=== PATIENT | female | born 1950 | race Caucasian/White ===

== ENCOUNTER 2024-07-17 16:05 | Outpatient (REF) | payer MEDICARE, SELFPAY ==
--- OUTSIDE RECORDS SUMMARY | 2024-07-17 17:21 | XMS_ITS | Continuity of Care Document ---
Author Organization [facility] Address [address] [place] [address]- Care Team Providers Care Dog Control Officer Name Role Phone Vern CARTON MARKER MACHINE, Lashanda Minaya Primary Care Physician [id number] Date(s): 06/11/24 - 07/11/[address] [address] Encounter Type: Triage Allergies, Adverse Reactions, Alerts Substance Criticality Severity Reaction Reaction Severity Status azithromycin rash Active Vioxx unknown Active Immunizations Given and Recorded Vaccine Date Status Refusal Reason pneumococcal 13-valent vaccine 10/04/18 Given Medications acetaZOLAMIDE 500 mg oral capsule, extended release 500 mg, 1, capsule, By Mouth, Daily at bedtime, # 30 capsule, Refills 3, Tot. Refills 3, Maintenance, 02/04/24 1:30:00 PM EDT, Route to Pharmacy Electronically, [facility] #[id number], Partial fill upon patient request if the prescription is for a schedule II opioid drug., 155, cm, 01/23/24 16:2 3:00 EDT, Height, 79.3, kg, 12/11/23 16:46:00 EDT, Dry Weight Start Date: 02/04/24 Status: Ordered Quantity: 30.0 Unit: capsule Repeat number: 4 ARIPiprazole 2 mg oral tablet 2 mg, 1, tablet, By Mouth, Daily, # 30 tablet, Refills 0, Maintenance, 03/28/24 10:16:00 AM EDT, Partial fill upon patient request if the prescription is for a schedule II opioid drug. Start Date: 03/28/24 Status: Ordered Quantity: 30.0 Unit: tablet Repeat number: 1 buPROPion 300 mg/24 hours (XL) oral tablet, extended release 1 tablet = 300 mg, By Mouth, Daily, # 30 tablet, 0 Refills, Maintenance, 07/26/23 3:32:00 PM EST, ERTablet, Partial fill upon patient request if the prescription is for a schedule II opioid drug. Start Date: 07/26/23 Status: Ordered Quantity: 30.0 Unit: tablet Repeat number: 1 Calcium Carbonate-Magnesium Carbonate By Mouth, Daily, 0 Refills, Maintenance, 11/16/21 3:34:00 PM EDT, Partial fill upon patient request if the prescription is for a schedule II opioid drug. Start Date: 11/16/21 Status: Ordered Repeat number: 1 D3 1000 oral tablet 1 tablet = 1,000 International_Units, By Mouth, Daily, 0 Refills, Maintenance, 10/02/17 9:19:25 AM EDT Start Date: 10/02/17 Status: Ordered Repeat number: 1 duloxetine 60 mg oral enteric coated capsule 1 capsule = 60 mg, By Mouth, Daily, 0 Refills, Maintenance, 10/02/17 9:18:04 AM EDT Start Date: 10/02/17 Status: Ordered Repeat number: 1 estradiol 0.1 mg/g vaginal cream 0 Refills, Maintenance, 11/16/21 2:30:00 PM EDT, Partial fill upon patient request if the prescription is for a schedule II opioid drug. Start Date: 11/16/21 Status: Ordered Repeat number: 1 hydrochlorothiazide-valsartan 12.5 mg-320 mg oral tablet TAKE 1 TABLET BY MOUTH IN THE MORNING Start Date: 10/19/22 Status: Ordered Repeat number: 1 levothyroxine 0.088 mg oral tablet 1 tablet = 88 mcg, By Mouth, Daily, 0 Refills, Maintenance, 11/16/21 2:30:00 PM EDT, Partial fill upon patient request if the prescription is for a schedule II opioid drug. Start Date: 11/16/21 Status: Ordered Repeat number: 1 Magnesium Chloride 0 Refills, Maintenance, 01/31/18 11:12:51 AM EDT Start Date: 01/31/18 Status: Ordered Repeat number: 1 MetFORMIN (Eqv-Glucophage XR) 500 mg oral tablet, extended release 0 Refills, Maintenance, 03/28/24 10:16:00 AM EDT, Partial fill upon patient request if the prescription is for a schedule II opioid drug. Start Date: 03/28/24 Status: Ordered Repeat number: 1 Multivitamin 0 Refills, Maintenance, 07/26/23 3:33:00 PM EST, Partial fill upon patient request if the prescription is for a schedule II opioid drug. Start Date: 07/26/23 Status: Ordered Repeat number: 1 [place]-3 oral capsule 0 Refills, Maintenance, 01/31/18 11:12:04 AM EDT Start Date: 01/31/18 Status: Ordered Repeat number: 1 pantoprazole 20 mg oral delayed release tablet 1 tablet = 20 mg, By Mouth, Daily, # 30 tablet, 0 Refills, Maintenance, 03/28/24 10:16:00 AM EDT, CRTablet Start Date: 03/28/24 Status: Ordered Quantity: 30.0 Unit: tablet Repeat number: 1 simvastatin 20 mg oral tablet 20 mg, 1, tablet, By Mouth, Daily at bedtime, # 30 tablet, Refills 0, Maintenance, 03/28/24 10:16:00AM EDT, Partial fill upon patient request if the prescription is for a schedule II opioid drug. Start Date: 03/28/24 Status: Ordered Quantity: 30.0 Unit: tablet Repeat number: 1 Tylenol Caplet Extra Strength = 1,000 mg, By Mouth, Every 6 hours, 0 Refills, Maintenance, 07/26/23 3:33:00 PM EST, Partial fill upon patient request if the prescription is for a schedule II opioid drug. Start Date: 07/26/23 Status: Ordered Repeat number: 1 Vitamin C 500 mg oral tablet 1 tablet = 500 mg, By Mouth, Daily, 0 Refills, Maintenance, 10/02/17 9:19:15 AM EDT Start Date: 10/02/17 Status: Ordered Repeat number: 1 Problem List Condition Confirmation Course Effective Dates Status Health St atus Informant Bruxism Confirmed Active Depression Confirmed Active Hypertension Confirmed Active Hypothyroid Confirmed Active Obstructive sleep apnea Confirmed Active Social History Social History Type Response Smoking Status Never (less than 100 in lifetime) entered on: 10/19/22 Sex Sex Representation Female (finding) Patient Care team information Care Team Personnel Name: Vern HARRELL, Lashanda Minaya Position: Reference Physician Member Role: PCP Address: [address] [place] [address]- Telecom: Name: Mirella Peters Position: S Outreach Member Role: Lifetime Consulting Physician Care Team Related Persons Name: YO BARBA Name: PRECIOUS MARTINEZ Insurance Providers Guarantor name: VALERIO MARTINEZ Health Plan Information #: 1 Payer: MEDICARE PART B OUTPT Member Number: NA Policy Number: NA Group Number: NA Health Plan Information #: 2 Payer: MEDEX Member Number: NA Policy Number: NA Group Number: NA
--- OUTSIDE RECORDS SUMMARY | 2024-07-17 17:21 | XMS_ITS | Continuity of Care Document ---
Author Organization [facility] Address [address] [place] [address]- Care Team Providers Care Nuclear Equipment Design Engineer Name Role Phone Vern CLOTH SHEARING SUPERVISOR, Lashanda Minaya Primary Care Physician [id number] Date(s): 06/05/24 - 07/05/[address] [address] Encounter Type: Triage Allergies, Adverse Reactions, Alerts [...] 1:30:00 PM EDT, Route to Pharmacy Electronically, [facility] #[id number], Partial fill upon patient request if the [...] Date: 07/26/23 Status: Ordered Repeat number: 1 [place]-3 oral capsule 0 Refills, Maintenance, 01/31/18 11:12:04 [...] Confirmed Active Obstructive sleep apnea Confirmed Active Vital Signs Most recent to oldest [Reference Range]: 1 Height 155 cm (06/05/24 6:29 PM) Weight 64 kg (06/05/24 6:29 PM) Social History Social History Type Response Smoking Status Never (less than 100 in lifetime) entered on: 4/6/23 Sex Sex Representation Female (finding) Patient Care team information Care Team Personnel Name: Vern HARRELL, Lashanda Minaya Position: Reference Physician Member Role: PCP Address: [address] [place] [address] Telecom: Name: Mirella Peters Position: S Outreach [...]
--- OUTSIDE RECORDS SUMMARY | 2024-07-17 17:21 | XMS_ITS | Continuity of Care Document ---
Author Organization [facility] Address [address] [place] [address]- Care Team Providers Care Surveyor Mine Name Role Phone Vern HARRELL, Lashanda Minaya Primary Care Physician Encounter [facility] Date(s): 05/26/24 - 07/10/[address] [address]- Attending Physician: Lashanda Porras NP Admitting Physician: Lashanda Porras NP Referring Physician: Lashanda Porras NP Encounter Type: Pre-Outpt Allergies, Adverse Reactions, Alerts Substance Criticality Severity [...] 1:30:00 PM EDT, Route to Pharmacy Electronically, [facility] #[id number], Partial fill upon patient request if the [...] Date: 07/26/23 Status: Ordered Repeat number: 1 [place]-3 oral capsule 0 Refills, Maintenance, 01/31/18 11:12:04 [...] Position: Reference Physician Member Role: PCP Address: [address] [place] [address]- Telecom: Name: Mirella Peters Position: [facility] Outreach Member Role: Lifetime Consulting Physician Care Team Related Persons Name: YO BARBA Name: PRECIOUS MARTINEZ Insurance Providers Guarantor name: VALERIO MARTINEZ Health Plan Information #: 1 Payer: MEDICARE PART B OUTPT Member Number: [id number] Policy Number: NA Group Number: NA Health Plan Information #: 2 Payer: MEDEX Member Number: [id number] Policy Number: NA Group Number: [id number]
--- OUTSIDE RECORDS SUMMARY | 2024-07-17 17:21 | XMS_ITS | Data Portability ---
Author Organization [place] [facility] [employer] Address [address] [place] [address] Assessment Encounter Date Assessment Date Assessment LastModified by Organization Details LastModified Time 02/11/2024 02/11/2024 Pt presents to office for start of ozempic injections. Educated on proper storage of medication and technique for giving subcutaneous injections, proper disposal of needles, and to monitor for s/s of nausea. SQ injection given in LLQ, no s/s of complications, pt tolerated well. Screening for strictly contraindicated conditions family or personal history of medullary thyroid cancer Screening for personal history of pancreatitis no Follow up in 1 month. Dosage given for the next 4 weeks 0.25mg Semaglutide for weight loss appropriate due to BMI and comorbid conditions. Follow up in 4 weeks [email or web address] Not available 02/13/2024 11:02:53 03/10/2024 03/10/2024 Per nursing protocol: Semaglutide for weight loss appropriate due to BMI and comorbid conditions. Patient is experiencing minimal and manageable side effects related to the medication per patient. Patient strongly encouraged to follow up with her providers to discuss current side effects. Patient also informed that provider at our office will be made aware of current symptoms. Patient to contact office if questions or concerns arise in the meantime. Patient agreed to plan and verbalized understanding. Total of 4 doses of Semaglutide 0.5 mg was supplied to patient via pre-filled syringes. Follow up in 4 weeks to assess for increase of dosage and management of semaglutide [email or web address] Not available 03/11/2024 09:40:32 04/07/2024 04/07/2024 Per Nursing Protocol SQ injection given in RLQ, no s/s of complications, pt tolerated well Side Effects: Fatigue Weight Loss Thus Far: 14 lbs Next Dose: Patient tolerating well will increase dose. Follow up in 1 month. Dosage given for the next 4 weeks 1mg Semaglutide for weight loss appropriate due to BMI and comorbid conditions. Follow up in 4 weeks [email or web address] Not available 04/07/2024 09:39:00 05/05/2024 05/05/2024 Side Effects: Diarrhea daily since increase in dose to 1mg weekly 4 weeks ago Weight Loss Thus Far: 18.8 pounds Next Dose: Continue on 1mg weekly Patient tolerating not well will maintain dose of Semaglutide 1mg weekly Dose given for the next 4 weeks 1mg Semaglutide for weight loss appropriate due to BMI and comorbid conditions. Follow up in 4 weeks [email or web address] Not available 05/05/2024 09:37:11 07/02/2024 07/02/2024 Comorbid Conditions: Obesity Side Effects: Fatigue and nausea Weight Loss Thus Far: Restart Next Dose: 0.25 Patient tolerating well will maintain dose. Follow up in 1 month. Dosage given for the next 4 weeks 0.25mg Semaglutide for weight loss appropriate due to BMI and comorbid conditions. Follow up in 4 weeks Assessment - Dizziness and occasional falling likely due to medication interactions - Symptoms resolved after discontinuation of Wegovy and two other medications Plan - Restart the medication at the lowest dose, administering it weekly for the first month to monitor tolerance and effectiveness. This approach is recommended to assess how symptoms are managed with the weekly dosage. - Discuss with the senior office support assistant sosa the financial implications of the medication regimen, particularly if considering adjustments to the dosing schedule, to understand potential cost variations. - Administer the first dose of the medication in the office to ensure proper technique and immediate observation for any adverse reactions. - Schedule a follow-up appointment on July 30, 2023, at 10:30 AM to evaluate the patient's response to the medication and discuss any necessary adjustments. Prescription - Wegovy, starting at the lowest dose, weekly - First dose administered in-office Appointments - Follow-up appointment on July 30, 2024, at 10:30 AM with the same doctor. [email or web address] Not available 07/07/2024 12:37:59 Plan of Treatment Reminders Order Date Submit Date Provider Last Modified By Organization Details Last Modified Time Details Appointments NURSE VISIT 025 10:30AM Nursing Schedule Not available Not available Not available Lab None recorde d. Referral None recorde d. Procedures None recorde d. Surgeries None recorde d. Imaging None recorde d. Medication Orders None recorde d. Patient TargetsNo targets recorded. Patient Instructions Encounter Date Encounter Id Patient Instructions Last Modified By Organization Details Last Modified Time 07/02/2024 [id number] Based on our discussion, I have outlined the following instructions for you: - Start taking your medication at the smallest dose once a week for the first month. This will help us see how well the medication is working and if your body can tolerate it. - Talk to the senior office support assistant sosa about how much the medication will cost, especially if we decide to change how often you take it. This will help you understand if the cost will change. - Take the first dose of your medication in the office. This way, we can make sure you're taking it correctly and watch for any bad reactions right away. - Make an appointment for July 30, 2023, at 10:30 AM. At this appointment, we'll see how you're doing with the medication and talk about any changes we might need to make. Next appointment(s): - Follow-up appointment on July 30, 2024, at 10:30 AM with the same doctor. Thank you again for your visit, and we look forward to supporting you in your journey to better health. [email or web address] Not available 07/02/2024 10:50:03 Reason for Referral None Reported. Medical Equipment None Reported. Medications Name Sig Start Date Stop Date Status Note LastModified by Organization Details LastModified Time acetazolamide ER 500 mg capsule,exten ded release TAKE 1 CAPSULE BY MOUTH DAILY AT BEDTIME active Not Available Not Available No t Available acetazolamide 125 mg tablet TAKE 1 TABLET BY MOUTH DAILY AT BEDTIME NEEDED FOR FATIGUE. INCREASE TO 2 TABLET DAILY AT BEDTIME AFTER 2 WEEKS active Not Available Not Available No t Available simvastatin 10 mg tablet active Not Available Not Available Not Available pantoprazole 20 mg tablet,delaye d release active Not Available Not Available No t Available levothyroxine 88 mcg tablet active Not Available Not Availabl e Not Available cephalexin 500 mg capsule TAKE 1 CAPSULE BY MOUTH THREE TIMES DAILY FOR 7 DAYS active Not Available Not Available No t Available simvastatin 20 mg tablet active Not Available Not Available Not Available valsartan 320 mg tablet active Not Available Not Available No t Available estradiol 0.01% (0.1 mg/gram) vaginal cream INSERT 1 GRAM VAGINALLY 3 TIMES A WEEK active Not Available Not Available No t Available metformin ER 500 mg tablet,extend ed release 24 hr active Not Available Not Available Not Available potassium chloride ER 10 mEq tablet,extend ed release(part/ cryst) active Not Available Not Available Not Available bupropion HCl XL 300 mg 24 hr tablet, extended release TAKE 1 TABLET BY MOUTH EVERY MORNING active Not Available Not Available No t Available duloxetine 60 mg capsule,delay ed release TAKE 1 CAPSULE BY MOUTH EVERY NIGHT AT BEDTIME active Not Available Not Available No t Available valsartan 320 mg-hydrochlor othiazide 12.5 mg tablet TAKE 1 TABLET BY MOUTH IN THE MORNING active Not Available Not Available No t Available aripiprazole 2 mg tablet TAKE 1 TABLET BY MOUTH EVERY DAY IN THE MORNING active Not Available Not Available No t Available Vitals Date Recorded Body weight Oxygen saturation Oxygen saturation in Arterial blood by Pulse oximetry Heart rate Systolic blood pressure Diastolic blood pressure Provider Name and Address Organization Details Last Updated DateTime 4 07135.8 4 g 99 % 99 % 69 /min 126 mm[Hg] 68 mm[Hg] Haley Guardado RN 1 [facility] [address], [place], [address], [facility] 10:59:03 Date Recorded Body weight Body mass index (BMI) Body height Provider Name and Address Organization Details Last Updated DateTime 03/10/2024 89348.88 g 30.8 kg/m2 152.4 cm Arlyn Flor RN [address], , [facility] 03/11/2024 09:42:02 Date Recorded Body height Body mass index (BMI) Body weight Provider Name and Address Organization Details Last Updated DateTime 04/07/2024 152.4 cm 29.6 kg/m2 65150.25 g Haley Guardado RN [address] [address], [place], [place], , [facility] 04/07/2024 09:07:34 Date Recorded Body height Body mass index (BMI) Body weight Provider Name and Address Organization Details Last Updated DateTime 05/05/2024 152.4 cm 28.6 kg/m2 96936.29 g Tamera Montez [address] [address], [place], [place], , [facility] 05/05/2024 09:06:51 Date Recorded Body height Body mass index (BMI) Body weight Heart rate Oxygen saturation Oxygen saturation in Arterial blood by Pulse oximetry Systolic blood pressure Diastolic blood pressure Provider Name and Address Organization Details Last Updated DateTime 152.4 cm 28.4 kg/m2 69744.9 9 g 51 /min 96 % 96 % 112 mm[Hg] 72 mm[Hg] Haley Guardado RN 1 [facility],[address], [place], [address], [place] [facility] 10:45:29 Social History None recorded. Functional Status None recorded. Mental Status None recorded. Family History Nothing Reported. Medical History No medical history recorded. Gynecological HistoryNo gynecological history recorded. Obstetrics History GPAL:G 0 P 0 0 0 0 Past Encounters Encounter ID Performer Location Encounter Start Date Encounter Closed Date Diagnosis/Indication Diagnosis SNOMED-CT Code Diagnosis ICD10 Code [id number] Haley Guardado RN [facility] [address] [place] [address] 02/11/2024 10:28:14 02/11/2024 12:12:05 Localized adiposity 800006336 E65 [id number] DEIDRE HOOD PA-C Main Office 1 [facility] [address] [place] [address] 03/10/2024 08:57:16 03/10/2024 10:00:00 Localized adiposity 562141912 E65 [id number] Gera Barth DO Main Office 1 [facility] [address] [place] [address] 04/07/2024 09:00:54 04/07/2024 09:35:24 Localized adiposity 960208554 E65 [id number] DEIDRE HOOD PA-C Main Office 1 [facility] [address] [place] [address] 05/05/2024 09:00:48 05/05/2024 09:33:36 Localized adiposity [id number] E65 [id number] Gera Barth DO Main Office 1 [facility] [address] [place] [address] 07/02/2024 10:27:12 07/02/2024 11:23:10 Localized adiposity [id number] E65 Health Concerns Section Related Observation LastModified by Organization Detai ls LastModified Time None Recorded Concern Status LastModified by Organization Details LastModified Time None Recorded Advance Directives Directive None Recorded Payers Encounter Date Sequence Insurance Name Policy Number Policy Tinoco Covered Member ID Tinoco Member ID Guarantor Name 02/11/2024 1 *SELF PAY* Ca therine Woolner 03/10/2024 1 *SELF PAY* Ca therine Woolner 04/07/2024 1 *SELF PAY* Ca therine Woolner 05/05/2024 1 *SELF PAY* Ca therine Woolner 07/02/2024 1 *SELF PAY* Ca therine Woolner Notes Date Note Type Note Provider Name and Address Organization Details Recorded Time 03/10/2024 text/html Patient presents to office for continued semaglutide administration, education and monitoring. Patient reports intermittent and mild nausea, indigestion, fatigue, diarrhea/constipation, and dry mouth. Patient reports occasional use of OTC medications for GI related symptoms which provides relief. Patient reports that the symptoms vary during the week and she is uncertain if there is a pattern. Encouraged to keep a diary of symptoms to report severity and time frame. Patient also reports that she is to have a discussion with her LAB SUPPORT TECHNICIAN to increase her bupropion and duloxetine due to experiencing more sadness . Patient currently denies SI/HI. Patient was happy to report that the medication seems to be helping with reducing self thoughts of body shaming. DEIDRE HOOD PA-C 1 [facility],[address], [place], [address], [facility] 03/11/2024 10:07:44 05/05/2024 text/html Chief complaintFollow-up for semaglutide treatment with concerns of daily diarrhea and severe sleep apnea.History of present illness- Presents for Fourth semaglutide visit- Diarrhea since dosage increase to 1mg weekly, occurring daily, sometimes with dribbling- No nausea, stomach pain, or bloating- History of reflux, unchanged with current medication- Previous symptoms of nausea, queasiness, and bloating resolved- Severe apnea, undergoing another sleep study- Using Inspire device for apnea, still experiencing symptoms- Weight loss noted, primary reason for semaglutide was apnea management[facility] including [facility] and sidex machinesPast medical history- Severe sleep apnea- Gastroesophageal reflux disease (GERD)Past surgical history- Inspire device implantation (July)Social history- Exercises at the [facility] five days a week- Uses sidex machines and takes water aerobics classesCurrent medications- Semaglutide 1 mg, weekly injection- Abilify, very tiny dose, frequency not specified- Medication for reflux, unspecifiedVitals- Weight: 146.8 lbs, loss of 5 pound since last visit 4 weeks ago. DEIDRE HOOD PA-C 1 [facility], [place], [address], [email or web address] - [facility] 05/05/2024 19:28:13 07/02/2024 text/html - Mallika Nicanor romeo, 73 years old - Stopped taking Wegovy and two other medications due to dizziness and occasional falling, symptoms resolved after discontinuation - Interested in restarting Wegovy and inquiring about dosing frequency (weekly or bi-weekly) - Experienced mild diarrhea, constipation, and indigestion with initial Wegovy use, but no severe symptoms - Engages in water aerobics regularly Gera Barth, DO 1 [facility], [place], [address], [email or web address] - [facility] 07/07/2024 14:32:09 OBGyn Episode No OBEpisode recorded.
--- OUTSIDE RECORDS SUMMARY | 2024-07-17 17:21 | XMS_ITS | Continuity of Care Document ---
Author Organization [facility] Address [address] [place] [address]- Care Team Providers Care Tube Cleaner Name Role Phone Vern PROCESSOR HELPER, Lashanda Minaya Primary Care Physician [id number] Date(s): 06/06/24 - 07/06/[address] [address] Encounter Type: Triage Allergies, Adverse [...] 1:30:00 PM EDT, Route to Pharmacy Electronically, [facility] #[id number], Partial fill upon patient request if the [...] Date: 07/26/23 Status: Ordered Repeat number: 1 [place]-3 oral capsule 0 Refills, Maintenance, 01/31/18 11:12:04 [...] Position: Reference Physician Member Role: PCP Address: [address] [place] [address]- Telecom: Name: Mirella Peters Position: S Outreach [...]
--- OUTSIDE RECORDS SUMMARY | 2024-07-17 17:22 | XMS_ITS | Continuity of Care Document ---
Author Organization [place] - [facility], Main Office Address [address] [facility] [address] [place] [address] Assessment Encounter Date Assessment Date Assessment LastModified by Organization Details LastModified Time 07/02/2024 07/02/2024 Comorbid Conditions: Obesity Side Effects: [...] the weekly dosage. - Discuss with the licensed loan officer assistant the financial implications of the medication regimen, [...] at 10:30 AM with the same doctor. [email or web address] Not available 07/07/2024 12:37:59 Plan of Treatment [...] By Organization Details Last Modified Time 07/02/2024 [id number] Based on our discussion, I have outlined the following instructions for you: - Start taking your medication at the smallest dose once a week for the first month. This will help us see how well the medication is working and if your body can tolerate it. - Talk to the licensed loan officer assistant about how much the medication will cost, [...] No t Available Vitals Date Recorded Body height Body mass index (BMI) Body weight Heart rate Oxygen saturation Oxygen saturation in Arterial blood by Pulse oximetry Systolic blood pressure Diastolic blood pressure Provider Name and Address Organization Details Last Updated DateTime 4 152.4 cm 28.4 kg/m2 29943.9 9 g 51 /min 96 % 96 % 112 mm[Hg] 72 mm[Hg] Haley Guardado RN [address] [facility] [address], [place], [address], [place] - [facility] 4 10:45:29 Social History None recorded. Functional Status None recorded. Mental Status None recorded. Family History Nothing Reported. Medical History No medical history recorded. Gynecological HistoryNo gynecological history recorded. Obstetrics History GPAL:G 0 P 0 0 0 0 Past Encounters Encounter ID Performer Location Encounter Start Date Encounter Closed Date Diagnosis/Indication Diagnosis SNOMED-CT Code Diagnosis ICD10 Code [id number] Gera Barth DO Main Office [address] [facility] [address] [place] [address] 07/02/2024 10:27:12 07/02/2024 11:23:10 Localized [facility] [id number] E65 Health Concerns Section Related Observation LastModified by Organization Detai ls LastModified Time None Recorded Concern Status LastModified by Organization Details LastModified Time None Recorded Payers Encounter Date Sequence Insurance Name Policy Number Policy Tinoco Covered Member ID Tinoco Member ID Guarantor Name 07/02/2024 1 *SELF PAY* Farhana Moore Notes Date Note Type Note Provider Name and Address Organization Details Recorded Time 07/02/2024 text/html - Mallika romeo, 73 years old - Stopped taking Wegovy and two other medications due to dizziness and occasional falling, symptoms resolved after discontinuation - Interested in restarting Wegovy and inquiring about dosing frequency (weekly or bi-weekly) - Experienced mild diarrhea, constipation, and indigestion with initial Wegovy use, but no severe symptoms - Engages in water aerobics regularly Gera Barth, DO [address] [facility],[address], [place], [address], [place] - [facility] 07/07/2024 14:32:09 OBGyn Episode No OBEpisode recorded.
--- OUTSIDE RECORDS SUMMARY | 2024-07-17 17:22 | XMS_ITS | Continuity of Care Document ---
Author Organization formerly [facility], Main Office Address [address] [facility] [address] [place] [address] Assessment Encounter Date Assessment Date Assessment LastModified by Organization Details LastModified Time 05/05/2024 05/05/2024 Side Effects: Diarrhea daily since increase in dose to 1mg weekly 4 weeks ago Weight Loss Thus Far: 18.8 pounds Next Dose: Continue on 1mg weekly Patient tolerating not well will maintain dose of Semaglutide 1mg weekly Dose given for the next 4 weeks 1mg Semaglutide for weight loss appropriate due to BMI and comorbid conditions. Follow up in 4 weeks [email or web address] Not available 05/05/2024 09:37:11 Plan of Treatment Reminders Order Date Submit Date Provider Last Modified By Organization Details Last Modified Time Details Appointments NURSE VISIT 025 10:30AM Nursing Schedule Not available Not available Not available Lab None recorde d. Referral None recorde d. Procedures None recorde d. Surgeries None recorde d. Imaging None recorde d. Medication Orders None recorde d. Patient TargetsNo targets recorded. Patient InstructionsNo instructions recorded. Reason for Referral None Reported. Medical Equipment [...] Updated DateTime 05/05/2024 152.4 cm 28.6 kg/m2 45620.29 g Tamera Lapan [address], [address], [place] - [facility] 05/05/2024 09:06:51 Social History None recorded. Functional Status None recorded. Mental Status None recorded. Family History Nothing Reported. Medical History No medical history recorded. Gynecological HistoryNo gynecological history recorded. Obstetrics History GPAL:G 0 P 0 0 0 0 Past Encounters Encounter ID Performer Location Encounter Start Date Encounter Closed Date Diagnosis/Indication Diagnosis SNOMED-CT Code Diagnosis ICD10 Code [id number] Gera Barth DO Main Office [address] [place] [address] 04/07/2024 09:00:54 04/07/2024 09:35:24 Localized adiposity [id number] [id number] DEIDRE HOOD PA-C Main Office [address] [place] [address] 05/05/2024 09:00:48 05/05/2024 09:33:36 Localized adiposity [id number] E65 Health Concerns Section Related Observation LastModified by Organization Detai ls LastModified Time None Recorded Concern Status LastModified by Organization Details LastModified Time None Recorded Payers Encounter Date Sequence Insurance Name Policy Number Policy Tinoco Covered Member ID Tinoco Member ID Guarantor Name 05/05/2024 1 *SELF PAY* Farhana stormy Vickagueda Notes Date Note Type Note Provider Name and Address Organization Details Recorded Time 05/05/2024 text/html Chief complaintFollow-up for semaglutide treatment [...] semaglutide was apnea management- Exercises at the five days a week, including water aerobics and sidex machinesPast medical history- Severe sleep apnea- Gastroesophageal reflux disease (GERD)Past surgical history- Inspire device implantation (July)Social history- Exercises at the [facility] five days a week- Uses sidex machines and takes water aerobics classesCurrent medications- Semaglutide 1 mg, weekly injection- Abilify, very tiny dose, frequency not specified- Medication for reflux, unspecifiedVitals- Weight: 146.8 lbs, loss of 5 pound since last visit 4 weeks ago. DEIDRE HOOD PA-C [address] [facility],[address], [place], [address], [place] - [facility] 05/05/2024 19:28:13 OBGyn Episode No OBEpisode recorded.
[2024-07-17 18:22] LABS: Vitamin B12 509 pg/mL (200-900)
[2024-07-18 22:48] LABS: Lyme Abs Screen <0.90 index
== END 2024-07-17 16:06 | disposition home or self-care (01) ==
LOC: HO.LAB 16:05
PROVIDERS: PCP Student in an Organized Health Care Education/Training Program; Visit Provider Psychiatry & Neurology Neurology
DX: G30.9 Alzheimer's disease, unspecified (principal)
CPT/HCPCS: 36415; 82607; 86617; 86618